=== PATIENT | female | born 1975 | race Caucasian/White ===

== ENCOUNTER 2018-11-06 00:43 | Inpatient (IN) ==
[2018-11-06 01:53] LABS: Basophils # (auto) 0.02 K/uL (0-0.2); Basophils % (auto) 0.2 %; Eosinophils # (auto) 0.16 K/uL (0-0.5); Eosinophils % (auto) 1.5 %; Hematocrit (blood only) 38.8 % (37-47); Hemoglobin 13.3 g/dL (12.0-16.0); Immature Granulocytes # (auto) 0.02 K/uL (0.00-0.02); Immature Granulocytes % (auto) 0.2 %; Lymphocytes # (auto) 4.01 K/uL (1.2-3.4); Lymphocytes % (auto) 38.6 %; Mean Corpuscular Hgb Conc 34.3 g/dL (32-36); Mean Corpuscular Volume 99.5 fL (80-100); Mean Platelet Volume 10.2 fL (7.4-10.4); Monocytes # (auto) 0.54 K/uL (0.11-0.59); Monocytes % (auto) 5.2 %; Neutrophils # (auto) 5.64 K/uL (1.4-6.5); Neutrophils % (auto) 54.3 %; Platelet Count 316 K/uL (130-400); RDW Coefficient of Variation 12.7 % (11.5-14.5); RDW Standard Deviation 46.2 fL (36.4-46.3); White Blood Count 10.39 K/uL (4.8-10.8)
[2018-11-06 02:09] LABS: Albumin Level 3.8 gm/dl (3.4-5.0); BUN Creatinine Ratio 21.6 (10-20); Calcium 9.1 mg/dl (8.5-10.1); Creatinine Clr Calc Pharmacy 102.5 ml/min; Est GFR (Non-African American) 106.1
[2018-11-06 02:12] LABS: Albumin Globulin Ratio 0.8 (0.9-2); Bilirubin,Total 0.2 mg/dl (0.2-1); C Reactive Protein 3.56 mg/dl (0-0.29); Globulin 4.6 gm/dl (2.5-4.0); Total Protein 8.4 gm/dl (6.4-8.2)
[2018-11-06] MEDS ORDERED: VANCOMYCIN HCL 1,500 MG in SODIUM CHLORIDE 0.9% 500 ML IV ONE (02:40)
[2018-11-06] MEDS ORDERED: VANCOMYCIN CONSULT ACTIVE PRN ×2 (02:40→04:46)
[2018-11-06] MEDS ORDERED: cefTRIAXone SODIUM 1,000 MG/50 ML BAG IV STA (02:46)
[2018-11-06 03:54] LABS: Pregnancy Test, Serum Negative (Negative)
[2018-11-06] MEDS ORDERED: ONDANSETRON INJ 2 MG/ML 2 ML VIAL IV PRN (04:46)
--- NOTE | 2018-11-06 05:34 | Emergency Department Note ---
History of Present Illness General Chief complaint: Infection Stated complaint: INFECTION FROM INCISION ON ANKLE Time Seen by Provider: 11/06/18 00:55 History of Present Illness Maximum Pain Intensity: 6 This is a 43-year-old female that presents to the emergency department via private vehicle with complaints of "infection from incision on ankle". The patient notes that on May 20 of this past year she had a surgical repair of a bimalleolar left ankle fracture. She states this was performed by Dr. Houston, orthopedic surgeon. She states that in August it was felt that she h ad a reaction to the absorbable sutures and that had cleared. She did not require surgery again at that time. She notes that now starting on Wednesday of this past week there was some redness of the left ankle and on Wednesday she called the office and was prescribed Keflex 500 mg p.o. 4 times daily. She has been taking this and has not missed any doses. She notes that tonight the area is more red, swollen and she notes now it is draining and open. This concerned her therefore prompting her arrival. She numerically rates the pain in the region as a 6/10. No fevers. Home Medications Home Medications Medication Instructions Recorded Confirmed Type diltiazem HCl 180 mg PO QAM 05/19/18 11/06/18 History cephalexin 500 mg PO QID 11/06/18 11/06/18 History Allergies Allergy/AdvReac Type Severity Reaction Status Date / Time codeine Allergy Unknown ITCHING Verified 11/06/18 01:27 Penicillins Allergy Unknown ITCHING Verified 11/06/18 01:27 Past Med/Surg History Medical History Hypertension Nausea and vomiting after administration of anesthetic agent Surgical History History of laparoscopy MULTIPLE FOR ENDOMETRIOSIS History of dilatation and curettage Social History Preferred Language: Icelandic Communication Ability: Effective Beliefs That Will Affect Care: None Current Living Situation: Spouse and Family Feels Safe at Home: Yes Smoking Status: Current every day smoker Hx Alcohol Use: Yes (RARELY) Hx Substance Use: No Review of Systems A total of 10 systems reviewed and were otherwise negative Physical Exam Vital Signs Vital Signs - 24 hr 11/06/18 00:48 11/06/18 02:32 11/06/18 04:28 Temperature 36.9 C Temperature Source Oral Sepsis Recent Fever Within 48 Hours No Sepsis Action Taken by Nursing No Action Required Pulse Rate 88 84 Pulse Rate [Right] 86 Pulse Rhythm [Right] Regular Pulse Strength [Right] Normal Respiratory Rate 16 18 18 Respiratory Effort / Characteristics Non-Labored Spontaneous Respiratory Depth Normal Blood Pressure 174/96 H 174/91 H Blood Pressure [Right Arm] 184/96 H Blood Pressure Mean 122 Blood Pressure Mean [Right Arm] 125 Blood Pressure Position [Right Arm] Sitting Pulse Oximetry 98 98 99 Oxygen Delivery Method Room Air Room Air Room Air VITAL SIGNS - Vital signs and nursing notes were reviewed. Hypertensive, otherwise stable. GENERAL -43-year-old female appearing her stated age who is in no acute distress. Communicates well with provider and answers questions appropriately. SKIN -the patient does have a well-healed surgical incision overlying the left lateral malleoli region is parallel to the fibula. Overlying this there is a tattoo. There is evidence of erythema overlying this region but is difficult to determine the extent within the tattoo itself as there is a reddish Shade to this. It does not extend beyond the mid calf or to the foot. At the superior most portion of the incision on the left lateral distal fibula there is a subcentimeter ulcerative skin lesion that appears to track deep to the skin tis sues. At this time to visualization there is no evidence of hardware exposure, however no additional investigation was performed beyond visual inspection. The region was not probed or altered. HEAD - NC/AT. EYES - PERRL with EOMI bilaterally. Sclera anicteric. EARS - No deformities of external structures noted on gross examination bilaterally. NOSE - Midline and without cyanosis. No epistaxis or purulent drainage noted. MOUTH/OROPHARYNX - Without perioral cyanosis. LUNGS - Chest wall symmetric without accessory muscle use, intercostals retractions, or central cyanosis. Normal vesicular breath sounds CTA B/L. No wheezes, rales, or rhonchi appreciated. CARDIAC - RRR with S1/S2. No murmur, rubs, or gallops appreciated. EXTREMITIES - No clubbing or peripheral cyanosis. No pretibial edema present. Skin changes as above. Minimal tenderness overlying the distal left fibula. No decreased range of motion noted of the toes, foot, ankle or knee. She is neurovascular intact distally. +5/5 strength noted in UE/LE bilaterally. NEUROLOGIC - Cranial nerves II through XII grossly intact. PSYCH - A&O, and cooperates fully with examiner. Pt is very pleasant and interacts well with examiner. Course Administered Medications Discontinued Medications Vancomycin HCl 1,500 mg/ (Sodium Chloride) 530 mls @ 200 mls/hr IV NOW ONE Stop: 11/06/18 05:18 Last Admin: 11/06/18 03:25 Dose: 200 mls/hr Documented by: [id number] Ceftriaxone Sodium (Rocephin) 1,000 mg in 50 mls @ 100 mls/hr IV NOW STA Stop: 11/06/18 03:15 Last Infusion: 11/06/18 03:26 Dose: 0 mls/hr Documented by: [id number] Admin: 11/06/18 03:05 Dose: 100 mls/hr Documented by: [id number] Medical Decision Making Laboratory Data Result diagrams: 11/06/18 01:25 11/06/18 01:25 Lab Results 11/06/18 11/06/18 11/06/18 Range/Units 01:25 01:25 01:25 WBC 10.39 (4.8-10.8) K/uL RBC 3.90 L (4.2-5.4) M/uL Hgb 13.3 (12.0-16.0) g/dL Hct 38.8 (37-47) % MCV 99.5 (80-100) fL MCH 34.1 H (25-34) pg MCHC 34.3 (32-36) g/dL RDW Std Deviation 46.2 (36.4-46.3) fL RDW Coeff of Terence 12.7 (11.5-14.5) % Plt Count 316 (130-400) K/uL MPV 10.2 (7.4-10.4) fL Immature Gran % (Auto) 0.2 % Neut % (Auto) 54.3 % Lymph % (Auto) 38.6 % Columbia % (Auto) 5.2 % Eos % (Auto) 1.5 % Baso % (Auto) 0.2 % Immature Gran # (Auto) 0.02 (0.00-0.02) K/uL Neut # (Auto) 5.64 (1.4-6.5) K/uL Lymph # (Auto) 4.01 H (1.2-3.4) K/uL [place] # (Auto) 0.54 (0.11-0.59) K/uL Eos # (Auto) 0.16 (0-0.5) K/uL Baso # (Auto) 0.02 (0-0.2) K/uL ESR 63 H (0-21) mm/hr Sodium 136 (136-145) mmol/L Potassium 4.0 (3.5-5.1) mmol/L Chloride 106 (98-107) mmol/L Carbon Dioxide 23 (21-32) mmol/L Anion Gap 7.0 (3-11) BUN 15 (7-18) mg/dl Creatinine 0.70 (0.6-1.2) mg/dl Est Cr Clr Drug Dosing 102.5 ml/min Est GFR ( Amer) 123.0 Est GFR (Non-Af Amer) 106.1 BUN/Creatinine Ratio 21.6 H (10-20) Glucose 97 (70-99) mg/dl Calcium 9.1 (8.5-10.1) mg/dl Total Bilirubin 0.2 (0.2-1) mg/dl AST 16 (15-37) U/L ALT 28 (12-78) U/L Alkaline Phosphatase 75 (45-117) U/L C-Reactive Protein 3.56 H (0-0.29) mg/dl Total Protein 8.4 H (6.4-8.2) gm/dl Albumin 3.8 (3.4-5.0) gm/dl Globulin 4.6 H (2.5-4.0) gm/dl Albumin/Globulin Ratio 0.8 L (0.9-2) HCG, Qual (Negative) 11/06/18 Range/Units 01:25 WBC (4.8-10.8) K/uL RBC (4.2-5.4) M/uL Hgb (12.0-16.0) g/dL Hct (37-47) % MCV (80-100) fL MCH (25-34) pg MCHC (32-36) g/dL RDW Std Deviation (36.4-46.3) fL RDW Coeff of Terence (11.5-14.5) % Plt Count (130-400) K/uL MPV (7.4-10.4) fL Immature Gran % (Auto) % Neut % (Auto) % Lymph % (Auto) % [place] % (Auto) % Eos % (Auto) % Baso % (Auto) % Immature Gran # (Auto) (0.00-0.02) K/uL Neut # (Auto) (1.4-6.5) K/uL Lymph # (Auto) (1.2-3.4) K/uL [place] # (Auto) (0.11-0.59) K/uL Eos # (Auto) (0-0.5) K/uL Baso # (Auto) (0-0.2) K/uL ESR (0-21) mm/hr Sodium (136-145) mmol/L Potassium (3.5-5.1) mmol/L Chloride (98-107) mmol/L Carbon Dioxide (21-32) mmol/L Anion Gap (3-11) BUN (7-18) mg/dl Creatinine (0.6-1.2) mg/dl Est Cr Clr Drug Dosing ml/min Est GFR ( Amer) Est GFR (Non-Af Amer) BUN/Creatinine Ratio (10-20) Glucose (70-99) mg/dl Calcium (8.5-10.1) mg/dl Total Bilirubin (0.2-1) mg/dl AST (15-37) U/L ALT (12-78) U/L Alkaline Phosphatase (45-117) U/L C-Reactive Protein (0-0.29) mg/dl Total Protein (6.4-8.2) gm/dl Albumin (3.4-5.0) gm/dl Globulin (2.5-4.0) gm/dl Albumin/Globulin Ratio (0.9-2) HCG, Qual Negative (Negative) Imaging Data My Impression: Left ankle 3 views were obtained. No fracture or dislocation. Hardware appears intact. There is evidence of soft tissue edema overlying the left lateral superior portion of the hardware, with evidence of skin ulceration. MDM Narrative Patient was seen and evaluated as above in room B5. Review was performed of nursing notes and vital signs. After obtaining a thorough history and physical examination the above work up was performed. She presents to us today with an open wound to the left ankle which occurred tonight. She has been on p.o. antibiotics for the past few days. She had surgery on this back in May. Vital signs are stable other than hypertension. No fever. No evidence of systemic involvement. Based upon her presentation and did elect to obtain IV access. CBC reveals no concerning leukocytosis. Minimal decrease in red blood cell count 3.9. No emergent metabolic process. I will note that the patient does have elevated C-reactive protein at 3.56, and ESR at 63. The concern is that there could be deeper involvement of the infection beyond what is visualized. X-ray was obtained. I did discuss these findings with the on-call orthopedic surgeon for the group of which the patient follows. I spoke with Dr. Mckinney. We discussed the case. At this time antibiotics were ordered. Vancomycin and Rocephin. Rocephin was ordered over penicillin secondary to the patient's documented penicillin allergy. Again at this time there is no eviden ce of systemic involvement. I do believe the however she would benefit from inpatient management and evaluation secondary to her worsening despite p.o. antibiotics and overlying the surgical incision with underlying hardware. She was admitted by the orthopedic team. I did cleanse the region with sterile saline. The region was dried. I did place a dry nonstick dressing. Please refer to further documentation regarding her stay. Blood culture and wound culture pending. Case was discussed with the attending physician. In the evaluation and treatment of this patient the following differential diagnoses were entertained: Sialitis, abscess, infection, osteomyelitis, hardware infection, sepsis, among others. Impression & Plan Open wound of left ankle, History of ankle surgery Discharge Plan Visit Data *Final* Discharge Date/Time: 11/06/18 04:28 Chief Complaint: Infection Stated Complaint: INFECTION FROM INCISION ON ANKLE ED Provider: [facility] ED Midlevel Provider: John Paul Curry Discharge Problem: Open wound of left ankle, History of ankle surgery Patient Disposition: Admitted As Inpatient Condition: Good Discharge Instructions Interventions: ED Discharge Assessment Last Done: 11/06/18 04:28
[2018-11-06] MEDS: D5W AND 1/2NSS + 20MEQ KCL 20 MEQ/1,000 ML BAG IV SCH ×2 (06:16→16:52)
--- NOTE | 2018-11-06 06:27 | XRay Report ---
XR chest 2V routine HISTORY: 43 years-old Female preop clearance preoperative exam. No acute chest complaints COMPARISON: None available TECHNIQUE: 2 views of the chest FINDINGS: The cardiomediastinal and hilar silhouettes are within normal limits. There is no pneumothorax, pleur al effusion, focal airspace consolidation or overt pulmonary edema. Bones of the chest appear grossly intact. IMPRESSION: No acute process. The above report was generated using voice recognition software. It may contain grammatical, syntax o r spelling errors. Electronically signed by: Jean Pierre Matt M.D. 11/06/2018 6:26 AM
--- NOTE | 2018-11-06 06:29 | XRay Report ---
XR ankle LT min 3V routine HISTORY: 43 years-old Female L ankle lateral drainage, erythema. Acute pain and swelling of the late ral left ankle COMPARISON: Fluoroscopic images of the left ankle 05/20/2018 TECHNIQUE: 3 views of the left ankle FINDINGS: ORIF changes from remote bimalleolar fracture with single cannulated screw of the medial malleolus an d lateral plate and screw fusion of the lateral malleolus. Satisfactory alignment of the subacute to chronic appearing fracture deformities. No evidence of hardware complication, acute fracture or dislo cation. Moderate soft tissue swelling about the lateral lower leg and ankle. No opaque foreign body. Small to moderate ankle joint effusion. IMPRESSION: 1. ORIF changes from remote bimalleolar fracture without evidence of hardware complication, acute fra cture or dislocation. 2. Moderate anterolateral soft tissue swelling with small to moderate ankle joint effusion. 3. No opaque foreign body. The above report was generated using voice recognition software. It may contain grammatical, syntax o r spelling errors. Electronically signed by: Jean Pierre Matt M.D. 11/06/2018 6:28 AM
--- NOTE | 2018-11-06 08:03 | History & Physical Report ---
Date of Service November 06, 2018 Assessment & Plan (1) Open wound of left ankle: 1. Continue with current abx treatment 2. Recommend consultation from infectious disease to direct abx care 3. Continue with current pain medication regime 4. Awaiting laboratory and microbiology data before making any decision on removal of hardware vs. treating conservatively Present on Admission?: Yes History of Present Illness Primary Care Provider: Cristinapeter Mccormick Patient is a 43 y/o female c/o pain and drainage from prior incision from ORIF left ankle fracture. The ORIF was done last may and their were no apparent complications. In august there was a small area on the inferior aspect of lateral incision that was erythematous and draining. With time the wound closed up. A couple of weeks ago the superior aspect of the incision broke open and started draining again. She states that it is painful to touch. Denies fever, sweats, chills. Area is painful to touch. Allergies Allergy/AdvReac Type Severity Reaction Status Date / Time codeine Allergy Unknown ITCHING Verified 11/06/18 01:27 Penicillins Allergy Unknown ITCHING Verified 11/06/18 01:27 Home Medications Home Medications Medication Instructions Recorded Confirmed Type diltiazem HCl 180 mg PO QAM 05/19/18 11/06/18 History cephalexin 500 mg PO QID 11/06/18 11/06/18 History Past Med/Surg History Medical History Hypertension Nausea and vomiting after administration of anesthetic agent Surgical History History of laparoscopy MULTIPLE FOR ENDOMETRIOSIS History of dilatation and curettage Social History Preferred Language: Macanese Communication Ability: Effective Rd Manager Required: No Beliefs That Will Affect Care: None Current Living Situation: Family Feels Safe at Home: Yes Safety Concerns: Feels Safe At This Time Smoking Status: Current every day smoker Hx Alcohol Use: No Hx Substance Use: No Review of Systems Erythematous area that is draining on superior aspect of left lateral ankle. Nuerovascularly intact Integumentary: + wounds and + erythema Physical Exam Vital Signs (Past 24 Hours): Last Vital Signs Temp 37.0 C 11/06/18 07:30 Pulse 102 H 11/06/18 07:30 Resp 16 11/06/18 07:30 BP 153/83 H 11/06/18 07:30 Pulse Ox 97 11/06/18 07:30 Constitutional: well developed, well nourished and comfortable Cardiovascular: RRR, no murmur, no edema Vessels: posterior tibial pulses present Extremities: normal capillary refill Musculoskeletal: Extremities: strength 5/5 throughout Ankle: + ankle ab normal to inspection and + skin erythema Skin: + wound and + erythema Supervising Physician Co-Signing Physician Notes Dr. Cochran was present and conducted physical examination of the patient
--- NOTE | 2018-11-06 09:15 | Progress Note ---
DATE: 11/06/2018 ORTHOPEDIC PROGRESS NOTE SUBJECTIVE: Audra is a 43-year-old female patient of my partner Dr. Houston and had an ORIF of her bimalleolar ankle fracture back in May and then having some drainage of her wound this past fall, presented last night to the ER with increasing drainage through the lateral incision of her left ankle. She was admitted by the on-call orthopedic surgeon, Dr. Mckinney and we are taking over her care. Since the wound has drained she has felt better. PHYSICAL EXAMINATION: VITAL SIGNS: Show a temperature of 37.0. EXTREMITIES: The ankle today on the medial side is completely normal. She has a long lateral incision. She has a large tattoo in this area, but you can see, there is an area of drainage about a third of the way proximally about 1-2cm area of dehisence. Tthe distal portion had an open area drain this past fall, but it is closed over now. There is no janett pus coming out, it is just an open area, little bit tender around there. Due to the large tattoo in this area of her ankle incision it hard to tell about redness but it does not appear to significant. IMAGING: X-rays done last night reviewed show no obvious signs of an osteo. The fracture looks to be well healed, both of the medial and lateral sides. LABORATORY DATA: Most recent lab drawn last night shows a white count of 10.97. She has a C-reactive protein 3.56 and the sed rate is 63. IMPRESSION: Status post open reduction and internal fixation, left ankle fracture 6 months ago with subsequent now second episode of cellulitis and drainage of the lateral incision. PLAN: We are going to consult infectious disease. She is on IV antibiotics right now. There is a possibility that down the road we might have to either I and D this more or consider taking out the whole lateral plate. Her fracture looks to be healed at this time. We will go ahead and get infectious disease recommendations and make further decisions depending on their evaluation. CAPO
[2018-11-06] MEDS: VANCOMYCIN HCL 1,000 MG in SODIUM CHLORIDE 0.9% 250 ML IV SCH ×2 (11:29→19:44)
--- NOTE | 2018-11-06 12:23 | Infectious Disease Consult ---
Date of Consultation November 06, 2018 Assessment & Plan (1) Open wound of left ankle: continue abx, wbc improved, esr elevated. await culture but may be negative due to prolonged outpt kelfex use. Dr. Cordon to follow. History of Present Illness Attending Physician: Juan José Mckinney MD pt admitted after left ankle wound spontaneously opened at home. was having subjective fevers and chills at home for 2-3 days prior to wound opening, now feeling much better. wound culture obtained in Er, pending. blood cultures pending. on ctx and vanco, tolerating well. was taking kelfex prior. States she had wound opening in August - was treated with keflex from August until late Sep. stopped recently, then wound opened in new place. no n/v/d/abd pain. no cp, sob, cough. allergic to pcn but tolerating keflex at home. no drainage currently. able to ambulate without difficulty. Allergies Allergy/AdvReac Type Severity Reaction Status Date / Time codeine Allergy Unknown ITCHING Verified 11/06/18 01:27 Penicillins Allergy Unknown ITCHING Verified 11/06/18 01:27 Home Medications Home Medications Medication Instructions Recorded Confirmed Type diltiazem HCl 180 mg PO QAM 05/19/18 11/06/18 History cephalexin 500 mg PO QID 11/06/18 11/06/18 History Patient History Medical History Hypertension Nausea and vomiting after administration of anesthetic agent Surgical History History of laparoscopy MULTIPLE FOR ENDOMETRIOSIS History of dilatation and curettage Family History Father Family history of diabetes mellitus Social History Preferred Language: Uzbek Communication Ability: Effective Contracts Manager Required: No Beliefs That Will Affect Care: None Current Living Situation: Family Feels Safe at Home: Yes Safety Concerns: Feels Safe At This Time Smoking Status: Current every day smoker Hx Alcohol Use: No Hx Substance Use: No Review of Systems all remaining ros reviewed and are negative Physical Exam Vital Signs (Past 24 Hours): Last Vital Signs Temp 37.0 C 11/06/18 07:30 Pulse 102 H 11/06/18 07:30 Resp 16 11/06/18 07:30 BP 153/83 H 11/06/18 07:30 Pulse Ox 97 11/06/18 07:30 Constitutional: WD/WN, vitals as above Eyes: PERRL, conjunctivae normal, anicteric sclerae ENMT: external ear and nose normal, oropharynx normal Neck: normal visual inspection Respiratory: normal respiratory effort, lungs clear to auscultation Cardiovascular: RRR, no murmur, no edema Gastrointestinal (Abdomen): normal bowel sounds, soft, nontender, no hepatosplenomegaly Musculoskeletal: no cyanosis or clubbing, extremities motor strength 5/5 Skin: no rashes, warm and dry dressing c/d/i Psychiatric: A+Ox3, euthymic affect Results & Data Laboratory Results Microbiology 11/06/18 01:05 Leg,Left Gram Stain - Final
--- NOTE | 2018-11-06 16:57 | Pharmacy Report ---
Pharmacy Abx Initial Consult - Date of Service November 06, 2018 - Pharmacy Dosing Scope Date of Consult: 11/06/18 Consultation requested by: Dr. Mckinney Pharmacy is consulted to initiate Vancomycin IV dosing therapy, order appropriate labs and adjust drug dose/frequency. - Subjective The patient is a 43 year old F admitted on 11/06/18 03:22. - Objective Height: 5 ft 3 in Weight: 77.2 kg Vital Signs (Past 12hrs): Vital Signs Temp Pulse Resp BP BP Pulse Ox 11/06/18 15:00 37.3 C 83 20 118/76 97 11/06/18 07:30 37.0 C 102 H 16 153/83 H 97 11/06/18 05:17 36.6 C 80 16 166/94 H 98 Lab Results (24hrs): Laboratory Tests (24 Hours) 11/06/18 11/06/18 11/06/18 01:25 01:25 01:25 WBC 10.39 Neut # (Auto) 5.64 ESR 63 H Creatinine 0.70 Est Cr Clr Drug Dosing 102.5 C-Reactive Protein 3.56 H Micro Results: 11/06/18 01:05 Gram Stain - Final Leg,Left Deep Wound Culture - Pending 11/06/18 01:35 Blood Culture - Pending Blood 11/06/18 01:25 Blood Culture - Pending Blood - Risk Factors for Resistance * Antimicrobial use within the last 90 days: Keflex - Assessment & Plan Assessment 43 year old F presenting with pain and drainage from prior incision from ORIF left ankle fracture. Was treated with Keflex in August because her wound opened and was draining, but now the wound opened in a new place. Wound culture and blood cultures x2 currently pending. Plan Vancomycin for treatment of infected incision and drainage on left ankle from prior surgery. Vancomycin IV * Estimated PK Parameters: Vd 0.61 L/kg, Varun 0.087 hr-1, t1/2 8 hr * Loading dose: 1500 mg (19 mg/kg) * Maintenance dose: 1000 mg IV (13 mg/kg) every 8 hours * Goal trough level for infected incision: 15 to 20 mcg/mL * Trough level ordered for 11/07/18 at 1130 Patient also receiving Rocephin 1 gm Q24 Pharmacy will continue to follow and will adjust dose/frequency as necessary. Thank you.
[2018-11-07] MEDS: VANCOMYCIN HCL 1,000 MG in SODIUM CHLORIDE 0.9% 250 ML IV SCH ×3 (02:50→19:17)
[2018-11-07] MEDS: D5W AND 1/2NSS + 20MEQ KCL 20 MEQ/1,000 ML BAG IV SCH ×3 (02:50→21:49)
[2018-11-07] MEDS: cefTRIAXone SODIUM 1,000 MG in DEXTROSE 5% 50 ML IV SCH (05:13)
[2018-11-07 07:53] LABS: Creatinine Clr Calc Pharmacy 104.9 ml/min; Est GFR (African American) 124.2; Est GFR (Non-African American) 107.1
--- NOTE | 2018-11-07 10:25 | Progress Note ---
DATE: 11/07/2018 SUBJECTIVE: Audra is a 43-year-old female who is sitting in bed today in the room, room 356. Her pain is not too bad, actually it is better since it drained. She had no chills or fever. Overall, she is feeling pretty good. VITAL SIGNS: Blood pressure 162/98, temperature 36.7. OBJECTIVE: The dressing was changed. She still has a little bit of drainage on the 4 x 4. Once again redness is hard to ascertain due to her tattoo, but it looks not to be anywhere significant. A little bit of fullness in the area. No active drainage at this time. She has no pain in the medial side of her ankle. ASSESSMENT: She is status post open reduction and internal fixation left ankle fracture 6 months ago, subsequent wound infection deep vs superficial to the proximal third. PLAN: We are waiting for cultures. Dr. Liz from Infectious Disease saw her yesterday. She has had a slight drop in her H and H. Clinically, she seems to be better. We will wait to get further recommendations of Infectious Disease and we once again had a short discussion about possibility of removal of the plate and I and D in the wound versus continued antibiotic treatment and let this granulate in. Decision will be made once we have more information as far as the cultures are concerns. [facility]
[2018-11-07] MEDS ORDERED: VANCOMYCIN TROUGH ONE (11:30)
--- NOTE | 2018-11-07 12:49 | Pharmacy Report ---
Pharmacy Abx Dose Short Note - Date of Service November 07, 2018 - Assessment & Plan Assessment Patient with R ankle infection s/p open reduction an internal fixation. Previously treated with keflex last August. This is the second episode of cellulitis/drainage from area. Blood cultures are no growth. Wound cultures - no organisms seen on preliminary. ID is currently following the patient. Surgery following, will determine if removal of the plate and I&D vs. continued antibiotics. Plan Vancomycin * Trough level this am slightly subtherapeutic at ~12.7 mcg/ml (goal 15-20 mcg/ml), however previous dose given over an hour early therefore expect true level to be closer to goal at ~15 mcg/ml * Will continue with current regimen of vancomycin of 1000 mg iv q 8 hrs - will plan to recheck trough level in next 1-2 days if decision is to continue with vancomycin * Scr remains stable today, CrCl remains >100 ml/min Pharmacy will continue to follow and will adjust dose/frequency as necessary. Thank you.
[2018-11-07 18:26] LABS: Basophils # (auto) 0.02 K/uL (0-0.2); Basophils % (auto) 0.3 %; Eosinophils # (auto) 0.13 K/uL (0-0.5); Eosinophils % (auto) 1.8 %; Hematocrit (blood only) 35.3 % (37-47); Hemoglobin 11.8 g/dL (12.0-16.0); Immature Granulocytes # (auto) 0.01 K/uL (0.00-0.02); Immature Granulocytes % (auto) 0.1 %; Lymphocytes % (auto) 36.4 %; Mean Corpuscular Hgb Conc 33.4 g/dL (32-36); Mean Corpuscular Volume 100.6 fL (80-100); Mean Platelet Volume 10.6 fL (7.4-10.4); Monocytes # (auto) 0.36 K/uL (0.11-0.59); Neutrophils # (auto) 4.03 K/uL (1.4-6.5); Neutrophils % (auto) 56.4 %; Platelet Count 259 K/uL (130-400); RDW Coefficient of Variation 12.8 % (11.5-14.5); RDW Standard Deviation 47.2 fL (36.4-46.3); Red Blood Count 3.51 M/uL (4.2-5.4); White Blood Count 7.15 K/uL (4.8-10.8)
[2018-11-08] MEDS: VANCOMYCIN HCL 1,000 MG in SODIUM CHLORIDE 0.9% 250 ML IV SCH ×3 (04:16→20:31)
[2018-11-08] MEDS: cefTRIAXone SODIUM 1,000 MG in DEXTROSE 5% 50 ML IV SCH (06:28)
[2018-11-08] MEDS: D5W AND 1/2NSS + 20MEQ KCL 20 MEQ/1,000 ML BAG IV SCH ×2 (07:39→21:36)
[2018-11-08 08:01] LABS: Creatinine Clr Calc Pharmacy 90.3 ml/min; Est GFR (African American) 106.3; Est GFR (Non-African American) 91.7
--- NOTE | 2018-11-08 10:56 | Progress Note ---
DATE: 11/08/2018 SUBJECTIVE: The patient is a 43-year-old female is seen today in her room in her bed. She is not having too much pain today, did have breakfast this morning. OBJECTIVE: VITAL SIGNS: Her temperature is 37.1, blood pressure 125/79. SKIN: We changed her dressing today. She has had more dehiscence of the wound now. It has probably extended another 2 cm distally from where it initially had come apart. There is not much erythema with it. A little bit more drainage on a 4 x 4 dressing also. Pain is not too bad. LABORATORY DATA: Shows her white count dropped to 7.15 from 10.39. Her sed rate is 29, sed rate dropping from a 63 down to 29. C-reactive protein 3.56 to 1.18. IMPRESSION: She is status post open reduction and internal fixation left ankle 6 months ago with subsequent cellulitis and possible deep infection of lateral wound. PLAN: The wound is dehisced more now. Her labs all look good, but I think clinically that we had a long discussion with her. Dr. King, one of our partner is available today to take him to the OR and probably just wash this out, remove the plate. The bone is healed, the plate is no longer needed. It is probably acting as a nidus or source to the biofilm that develops in the plate that can continue to have chronic infection. After talking to her, this is second time this is having now. We have elected to proceed in that direction. She will be n.p.o. the rest of the day. Anticipation going at on surgical case this afternoon with irrigation, debridement, removal of plate and possible placement of wound VAC of the left ankle incision.
--- NOTE | 2018-11-08 15:19 | History & Physical Bridge Note ---
Date of Service November 08, 2018 History & Physical Bridge Note I have examined the patient, reviewed the History & Physical and in the interval since the performance of the History & Physical I have noted the following changes of clinical significance: no changes noted
[2018-11-08] MEDS ORDERED: BACITRACIN INJ 50,000 UNIT VIAL ONE (15:46)
--- NOTE | 2018-11-08 15:47 | Anesthesiology Consultation ---
Date of Service November 08, 2018 The patient had an ORIF L ankle several months ago and now has a L ankle infection. Assessment & Plan (1) Encounter for pre-operative examination: Chart Review Chart Review: Acceptable Risk for Surgery and Patient NOT seen in Pre Admission Testing Consults Requested none ASA ASA2 NPO Date Last Intake of Fluids: 11/08/18 Time Last Intake of Fluids: 10:00 Date Last Intake of Solids: 11/08/18 Time Last Intake of Solids: 09:00 Last Intake of Solids Comment: had breakfast this morning. History Surgery Operation Date: 11/08/18 10:05 Proposed Procedures p Removal Hardware Ankle Left - David King DO s Incision and Drainage Ankle Left - David King DO Height/Weight Height: 5 ft 3 in Weight: 77.2 kg Allergies Allergy/AdvReac Type Severity Reaction Status Date / Time codeine Allergy Unknown ITCHING Verified 11/06/18 01:27 Penicillins Allergy Unknown ITCHING Verified 11/06/18 01:27 Medications Home Medications Medication Instructions Recorded Confirmed Last Taken diltiazem HCl 180 mg PO QAM 05/19/18 11/06/18 05/20/18 05:30 cephalexin 500 mg PO QID 11/06/18 11/06/18 Unknown Active Medications Generic Name Dose Route Start Last Admin Trade Name Freq PRN Reason Stop Dose Admin Diltiazem HCl 180 mg 11/06/18 09:00 11/08/18 07:39 Dilacor Xr PO 12/06/18 08:59 180 mg QAM SHARON Administration Potassium Chloride/Dextrose/Sod Cl 20 meq in 1,000 mls @ 100 mls/hr 11/06/18 0 5:30 11/08/18 07:39 D5w And 1/2nss + 20meq Kcl IV 12/06/18 05:29 100 mls/hr .Q10H SHARON Administration Ceftriaxone Sodium 1,000 mg/ 50 mls @ 100 mls/hr 11/07/18 06:00 11/08/18 07:40 Dextrose IV 11/17/18 05:59 Infused Q24H SHARON Infusion Protocol Vancomycin HCl 1,000 mg/ 270 mls @ 125 mls/hr 11/06/18 12:00 11/08/18 14:25 Sodium Chloride IV 11/16/18 11:59 Infused Q8H SHARON Infusion Past Medical History Medical History Hypertension Nausea and vomiting after administration of anesthetic agent Past Family History Family History Father Family history of diabetes mellitus Past Surgical History Surgical History History of laparoscopy MULTIPLE FOR ENDOMETRIOSIS History of dilatation and curettage Social History Smoking Status: Current every day smoker tobacco type: cigarettes Smoking cigarettes per day: 10-20 Hx Alcohol Use: No Alcohol type: beer alcohol intake frequency: other Hx Substance Use: No substance use type: prescription drug Physical Exam Vital Signs Last Vital Signs Temp 36.5 C 11/08/18 15:39 Pulse 74 11/08/18 15:39 Resp 16 11/08/18 15:39 BP 149/89 H 11/08/18 15:39 Pulse Ox 96 11/08/18 15:39 Testing Electrocardiogram Date: 11/06/18 Findings: + NSR @ (76) possible L atrial enlargement Chest X-Ray Date: 11/06/18 Findings: + NAD Laboratory Results 11/07/18 07:05 11/08/18 06:57 11/06/18 01:05 Gram Stain - Final Leg,Left Deep Wound Culture - Final No growth 11/06/18 01:35 Blood Culture - Preliminary Blood No growth to date. 11/06/18 01:25 Blood Culture - Preliminary Blood No growth to date.
[2018-11-08] MEDS ORDERED: BUPIVACAINE/EPINEPHRINE 0.5% MPF 1:200,000 30 ML VIAL ONE (16:12)
[2018-11-08] MEDS ORDERED: SCOPOLAMINE 1.5 MG TDSY ONE (16:59)
[2018-11-08] MEDS ORDERED: ONDANSETRON INJ 2 MG/ML 2 ML VIAL IV PRN ×2 (17:06→19:18)
[2018-11-08] MEDS ORDERED: ePHEDrine sulfate 50 MG/ML AMP IV PRN (17:06)
[2018-11-08] MEDS ORDERED: PHENYLEPHRINE 100MCG/ML 5ML SYR IV PRN (17:06)
[2018-11-08] MEDS ORDERED: ATROPINE SULFATE 0.1 MG/ML 10ML SYR IV PRN (17:06)
[2018-11-08] MEDS ORDERED: LABETALOL HCL IV 5 MG/ML 20ML IV PRN (17:06)
[2018-11-08] MEDS ORDERED: MEPERIDINE HCL 25 MG/ML CARP IV PRN (17:06)
[2018-11-08] MEDS ORDERED: SCOPOLAMINE 1.5 MG TDSY TD ONE (17:15)
[2018-11-08] MEDS ORDERED: MIDAZOLAM HCL 1 MG/ML 2ML VIAL ONE (17:34)
[2018-11-08] MEDS ORDERED: fentaNYL citrate 100 MCG/2 ML VIAL ONE (17:35)
[2018-11-08] MEDS ORDERED: ESMOLOL HCL INJ 10 MG/ML 10ML VIAL IV ONE (17:45)
[2018-11-08] MEDS ORDERED: DEXAMETHASONE SOD INJ 4 MG/ML VIAL ONE (17:47)
[2018-11-08] MEDS ORDERED: ONDANSETRON INJ 2 MG/ML 2 ML VIAL ONE (17:48)
[2018-11-08] MEDS ORDERED: PROPOFOL IV EMULSION 10 MG/ML 20 ML VIAL IV ONE (17:48)
[2018-11-08] MEDS ORDERED: SUCCINYLCHOLINE 100MG/5ML SYR ONE (17:48)
[2018-11-08] MEDS ORDERED: KETOROLAC 30 MG/ML VIAL ONE (18:10)
--- NOTE | 2018-11-08 18:24 | Operative Report ---
Post Operative Report Pre & Post Diagnosis Operation Date: 11/08/18 10:05 Pre-Op Diagnosis: Status post op open reduction internal fixation left ankle wound dehiscence with superficial infection Post-Op Diagnosis: Status post op open reduction internal fixation left ankle wound dehiscence with superficial infection Procedure Operation Date: 11/08/18 10:05 Actual Procedures p Removal Hardware Ankle Left - David King DO Irrigation and debridement with removal of hardware left ankle - David King DO Surgeon David King DO Pharmacy Associate David Haynes PAC Estimated Blood Loss 10 Findings Consistent with Post-Op Diagnosis Specimens Cultures Complications none Disposition Disposition: Recovery Room Indications Audra is a pleasant 43-year-old female who underwent an open reduction internal fixation of her left ankle 6 months ago. 3 months after the procedure she had a little bit of a wound issue and was spitting out the absorbable sutures. She was treated conservatively with oral antibiotics. Unfortunately the wound dehiscence then returned. She came to the hospital was admitted to the hospitalist service. The infection never look that bad but the wound continued to dehisce. She was treated with IV antibiotics and decision was made for a irrigation debridement with a wound revision and removal of the hardware. Description of Procedure On November 08, 2018 she was brought in from her hospital room to the preoperative holding area. The operative extremities identified and signed. She taken back to the operating room laid on table in supine position and put on general anesthesia. The left ankle was prepped and draped sterile fashion. A timeout was done and the patient and the operative extremity was properly identified. The entire lateral incision was opened back up. Time was spent debriding any infectious appearing tissue. All the infection appeared to be superficial. Cultures were taken. There was not much with regards to the infection. Dissection was taken down to the one third tubular plate. All the screws were removed including the lag screw and the plate was removed. The entire wound was then irrigated with 3 L of normal saline solution. Try soft tissues were once again debrided. The skin edges were freshened up. The skin was then closed with 3-0 nylon suture in a trauma stitch fashion. She was then placed in a soft dressing. She was then extubated and transferred to a hospital bed. She was taken to the postanesthesia care unit in stable condition. She tolerated the procedure well. I attest to the content of the Intraoperative Record and any orders documented therein. Any exceptions are noted below.
[2018-11-08] MEDS: fentaNYL citrate 100 MCG/2 ML VIAL IV PRN ×4 (18:41→18:56)
--- NOTE | 2018-11-08 19:03 | Anesthesiology Progress Note ---
Date of Service November 08, 2018 Anesthesia Post Procedure Vital Signs Vital Signs: Temp Pulse Pulse Resp BP BP Pulse Ox 11/08/18 18:55 84 18 148/92 H 95 11/08/18 18:45 92 H 18 138/87 96 11/08/18 18:35 95 H 18 161/92 H 98 11/08/18 18:28 36.4 C L 104 H 18 144/86 H 98 11/08/18 16:16 36.4 C L 79 16 172/92 H 100 11/08/18 15:39 36.5 C 74 16 149/89 H 96 11/08/18 07:07 37.1 C 75 18 135/79 97 11/07/18 22:46 37.3 C 95 H 16 153/89 H 97 Pain Intensity Left Lower Anterior Ankle: Pain Intensity: 4 Notes Mental Status: alert / awake / arousable Patient Amnestic to Procedure: Yes Nausea / Vomiting: adequately controlled Pain: adequately controlled Airway Patency, RR, SpO2: stable & adequate BP & HR: stable & adequate Hydration State: stable & adequate Anesthetic Complications: no major complications apparent and Pt Satisfied with anesthetic care
[2018-11-08] MEDS ORDERED: NALOXONE HCL 0.4 MG/1 ML VIAL/CARP IV PRN (19:18)
[2018-11-08] MEDS ORDERED: BISACODYL 10 MG SUPP PR PRN (19:18)
[2018-11-08] MEDS ORDERED: MAGNESIUM HYDROXIDE SUSP 30 ML UDC PO PRN (19:18)
[2018-11-08] MEDS ORDERED: SODIUM CHLORIDE 0.9% 1000ML 1,000 ML IV SCH (19:18)
[2018-11-08] MEDS ORDERED: METOCLOPRAMIDE HCL INJ 5 MG/ML 2 ML VIAL IV PRN (19:18)
[2018-11-08] MEDS: OXYCODONE/ACETAMINOPHEN 5mg/325mg TAB PO PRN (20:28)
[2018-11-08] MEDS ORDERED: SENNA 8.6 MG TAB PO SCH (21:00)
[2018-11-08] MEDS: DOCUSATE SODIUM 100 MG CAP PO SCH (22:52)
[2018-11-09] MEDS: CHECK SCOPOLAMINE PATCH PLACEMENT SCH ×3 (00:15→15:29)
[2018-11-09] MEDS: OXYCODONE/ACETAMINOPHEN 5mg/325mg TAB PO PRN ×2 (00:36→14:07)
[2018-11-09] MEDS: VANCOMYCIN HCL 1,000 MG in SODIUM CHLORIDE 0.9% 250 ML IV SCH ×2 (03:34→13:10)
[2018-11-09] MEDS: D5W AND 1/2NSS + 20MEQ KCL 20 MEQ/1,000 ML BAG IV SCH ×2 (03:35→13:20)
[2018-11-09] MEDS: cefTRIAXone SODIUM 1,000 MG in DEXTROSE 5% 50 ML IV SCH (05:42)
[2018-11-09 07:20] LABS: Creatinine Clr Calc Pharmacy 96.4 ml/min; Est GFR (Non-African American) 99.2
--- NOTE | 2018-11-09 07:23 | Orthopedic Progress Note ---
Date of Service November 09, 2018 Assessment & Plan (1) Open wound of left ankle: Overall she is doing very well. She is orthopedically stable for discharge today. She should probably on oral antibiotics for about a week. I will see her in my office in 3 weeks for suture removal. Our office phone number is [phone]. She can be weightbearing as tolerated. She can shower with the plastic dressing on now. She can shower without any dressing on in 5 days. Present on Admission?: Yes Nicolle Zhu was seen and examined at bedside this morning. Overall she is doing very well. She is having a little bit of soreness in the ankle but is not too bad. The dressing was changed last night. She has no complaints. Physical Exam Vital Signs (Past 24 Hours): Last Vital Signs Temp 36.8 C 11/09/18 03:45 Pulse 102 H 11/09/18 03:45 Resp 16 11/09/18 03:45 BP 116/65 11/09/18 03:45 Pulse Ox 96 11/09/18 03:45 Musculoskeletal: On physical examination of the left ankle, the dressing is clean and dry. She is active motion of all of her toes. Sensation is intact throughout.
[2018-11-09] MEDS: DOCUSATE SODIUM 100 MG CAP PO SCH (08:19)
[2018-11-09] MEDS ORDERED: MULTIVITAMIN TAB PO SCH (09:00)
--- NOTE | 2018-11-09 09:23 | Anesthesiology Progress Note ---
Date of Service November 09, 2018 Anesthesia Post Procedure Vital Signs Vital Signs: Temp Pulse Pulse Pulse Resp BP Pulse Ox 11/09/18 07:33 36.9 C 81 16 146/48 H 97 11/09/18 03:45 36.8 C 102 H 16 116/65 96 11/08/18 22:26 36.9 C 89 16 105/69 97 11/08/18 21:15 36.5 C 80 16 159/90 H 95 11/08/18 20:15 36.6 C 84 16 167/98 H 95 11/08/18 19:45 36.8 C 82 16 153/90 H 94 11/08/18 19:18 36.7 C 87 12 163/84 H 93 11/08/18 19:05 36.2 C L 81 18 157/81 H 96 11/08/18 18:55 84 18 148/92 H 95 11/08/18 18:45 92 H 18 138/87 96 11/08/18 18:35 95 H 18 161/92 H 98 11/08/18 18:28 36.4 C L 104 H 18 144/86 H 98 11/08/18 16:16 36.4 C L 79 16 172/92 H 100 11/08/18 15:39 36.5 C 74 16 149/89 H 96 Pain Intensity Left Lower Anterior Ankle: Pain Intensity: 2 Notes Mental Status: alert / awake / arousable and participated in evaluation Patient Amnestic to Procedure: Yes Nausea / Vomiting: adequately controlled Pain: adequately controlled Airway Patency, RR, SpO2: stable & adequate BP & HR: stable & adequate Hydration State: stable & adequate Anesthetic Complications: no major complications apparent and Pt Satisfied with anesthetic care
[2018-11-09] MEDS ORDERED: VANCOMYCIN TROUGH ONE (11:30)
--- NOTE | 2018-11-09 13:40 | Pharmacy Report ---
Pharmacy Abx Dose Short Note - Date of Service November 09, 2018 - Assessment & Plan Assessment Patient with R ankle infection s/p open reduction an internal fixation. Previously treated with keflex last August. This is the second episode of cellulitis/drainage from area. Blood cultures are no growth. Wound cultures - no organisms seen on preliminary. ID is currently following the patient. Patient now s/p I&D yesterday. Plan Vancomycin * Trough level came back therapeutic at ~11 mcg/ml (patient now s/p I&D therefore appropriate to target lower trough level due to source control) * No evidence of continued drainage per MD note, patient to likely be discharged home today with oral antibiotics * Will continue current regimen of vancomycin for now, renal function remains stable Pharmacy will continue to follow and will adjust dose/frequency as necessary. Thank you.
--- NOTE | 2018-11-09 15:13 | Infectious Disease Progress Nt ---
Date of Service November 09, 2018 Assessment & Plan (1) Open wound of left ankle: Left ankle infection, negative cultures suggest cephalexin effective prior to admission. Would continue cephalexin as outpatient, with length of therapy to be determined by clinical response. Patient advised to make outpt. appointment with Dr. Liz in 7-10 days. See no contraindication for discharge from ID standpoint. Subjective Patient seen in follow-up for infected left ankle. Operative cultures remain negative. Patient continues on vancomycin which he is tolerating without apparent difficulty. No fever or chills. Pain controlled. Review of Systems All systems reviewed & are unremarkable except as noted in HPI & below Physical Exam Vital Signs (Past 24 Hours): Last Vital Signs Temp 36.9 C 11/09/18 07:33 Pulse 81 11/09/18 07:33 Resp 16 11/09/18 07:33 BP 146/48 H 11/09/18 07:33 Pulse Ox 97 11/09/18 07:33 Constitutional: WD/WN, vitals as above comfortable; no acute distress Eyes: PERRL, conjunctivae normal, anicteric sclerae ENMT: external ear and nose normal, oropharynx normal Neck: trachea midline, no thyromegaly neck nontender Respiratory: normal respiratory effort, lungs clear to auscultation normal percussion; no respiratory distress Cardiovascular: Rate/Rhythm: regular rate and regular rhythm Heart Sounds: normal S1 and normal S2; no gallop, no murmur and no cardiac rub Gastrointestinal (Abdomen): normal bowel sounds, soft, nontender, no hepatosplenomegaly Musculoskeletal: no cyanosis or clubbing, extremities motor strength 5/5 No spinal tenderness, no joint swelling or erythema Skin: normal turgor and + lesion; no rashes dressing intact left ankle Neurologic: moves all extremities and awake; no focal motor deficits Motor/Sensory: no sensory deficit Psychiatric: A+Ox3, euthymic affect Lymphatic: no cervical or axillary lymphadenopathy no inguinal lymphadenopathy Results & Data Laboratory Results Laboratory Results - last 48 hr 11/07/18 11/07/18 11/07/18 07:05 07:05 07:05 WBC 7.15 RBC 3.51 L Hgb 11.8 L Hct 35.3 L MCV 100.6 H MCH 33.6 MCHC 33.4 RDW Std Deviation 47.2 H RDW Coeff of Terence 12.8 Plt Count 259 MPV 10.6 H Immature Gran % (Auto) 0.1 Neut % (Auto) 56.4 Lymph % (Auto) 36.4 Dixon % (Auto) 5.0 Eos % (Auto) 1.8 Baso % (Auto) 0.3 Immature Gran # (Auto) 0.01 Neut # (Auto) 4.03 Lymph # (Auto) 2.60 Dixon # (Auto) 0.36 Eos # (Auto) 0.13 Baso # (Auto) 0.02 ESR 29 H Creatinine Est Cr Clr Drug Dosing Est GFR ( Amer) Est GFR (Non-Af Amer) C-Reactive Protein 1.18 H Vancomycin Trough 11/08/18 11/09/18 11/09/18 06:57 05:55 11:33 WBC RBC Hgb Hct MCV MCH MCHC RDW Std Deviation RDW Coeff of Terence Plt Count MPV Immature Gran % (Auto) Neut % (Auto) Lymph % (Auto) Dixon % (Auto) Eos % (Auto) Baso % (Auto) Immature Gran # (Auto) Neut # (Auto) Lymph # (Auto) Dixon # (Auto) Eos # (Auto) Baso # (Auto) ESR Creatinine 0.79 0.74 Est Cr Clr Drug Dosing 90.3 96.4 Est GFR ( Amer) 106.3 115.0 Est GFR (Non-Af Amer) 91.7 99.2 C-Reactive Protein Vancomycin Trough 11.1 Diagnostic Findings Microbiology 11/08/18 Unknown Ankle,Left Gram Stain - Final 11/08/18 Unknown Ankle,Left Aerobic and Anaerobic Culture - Preliminary No growth to date. 11/06/18 01:05 Leg,Left Gram Stain - Final 11/06/18 01:05 Leg,Left Deep Wound Culture - Final No growth 11/06/18 01:35 Blood Blood Culture - Preliminary No growth to date. 11/06/18 01:25 Blood Blood Culture - Preliminary No growth to date.
--- NOTE | 2018-11-09 20:53 | Discharge Summary ---
Date of Service November 09, 2018 Admission HPI Per Admitting Provider Patient is a 43 y/o female c/o pain and drainage from prior incision from ORIF left ankle fracture. The ORIF was done last may and their were no apparent complications. In august there was a small area on the inferior aspect of lateral incision that was erythematous and draining. With time the wound closed up. A couple of weeks ago the superior aspect of the incision broke open and started draining again. She states that it is painful to touch. Denies fever, sweats, chills. Area is painful to touch. Specialty Data Orthopedic H & H 11/06/18 11/07/18 Range/Units 01:25 07:05 Hgb 13.3 11.8 L (12.0-16.0) g/dL Hct 38.8 35.3 L (37-47) % Microbiology 11/08/18 Unknown Ankle,Left Gram Stain - Final 11/08/18 Unknown Ankle,Left Aerobic and Anaerobic Culture - Preliminary No growth to date. 11/06/18 01:05 Leg,Left Gram Stain - Final 11/06/18 01:05 Leg,Left Deep Wound Culture - Final No growth 11/06/18 01:35 Blood Blood Culture - Preliminary No growth to date. 11/06/18 01:25 Blood Blood Culture - Preliminary No growth to date. Discharge Data Consultations 11/06/18 02:40 ED Decision to Admit Stat 11/06/18 07:49 Consult Infectious Diseases Routine Procedures Performed Operation Date: 11/08/18 10:05 Actual Procedures p Incision and drainage left ankle(Left) - David King DO s removal of hardware left ankle(Left) - David King DO Hospital Course (1) Open wound of left ankle: On November 06, 2018 Audra came to [facility] with an open wound on her left ankle. She underwent an open reduction internal fixation of her left ankle 6 months prior. She had a slight wound dehiscence with a suture abscess in August but that healed up on oral antibiotics. Unfortunately the wound has opened up again. She was admitted to the medical service. Infectious disease was then consulted. She was started on vancomycin and ceftriaxone. On her first hospital day her lab values were starting to improve some. The antibiotics seem to be helping. We wanted to continue with the IV antibiotics for now and await final infectious disease recommendations. On hospital day #2 the wound looked like it had dehisced even further. It was opening up more and looking more angry. At this point a decision was made to do an irrigation and debridement with hardware removal. On November 08, 2018 she was brought to the operating room and underwent I&D with hardware removal of the left ankle. Postoperatively she was placed in a soft dressing and placed back to the general orthopedic floors. She was kept on the vancomycin and ceftriaxone. On postop day #1 she was doing well. She was seen once again by infectious disease and they recommended a short course of oral antibiotics upon discharge. She was then discharged with oral antibiotics and will follow up with orthopedics in 3 weeks for suture removal. Discharge Instructions Home Medications Medication Instructions Recorded Confirmed diltiazem HCl 180 mg PO QAM 05/19/18 11/06/18 cephalexin 500 mg PO QID 11/06/18 11/06/18
== END 2018-11-09 17:18 | disposition home or self-care (01) | DRG 903 ==
LOC: ED 00:43 → 3W 03:22